=== PATIENT | female | born 1995 | race Caucasian/White ===

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

== ENCOUNTER 2017-04-19 07:31 | Outpatient (CLI) | payer MEDICAID ==
--- NOTE | 2017-04-19 16:00 | Ultrasound Report ---
OB ULTRASOUND: 04/19/2017 CLINICAL INDICATION: anatomy. TECHNIQUE: Real-time scanning was performed with technical account representative static images obtained. LAST MENSTRUAL PERIOD 11/06/2016 CLINICAL AGE 23 weeks 3 days US AGE 22 weeks 3 days EFW HADLOCK 511 grams EFW% HADLOCK 11% HEART RATE 137 bpm EDC 08/13/2017 US EDC 08/20/2017 BPD HADLOCK 22 weeks 0 days; Mean mm 53 HC HADLOCK 22 weeks 1 day; Mean mm 200 AC HADLOCK 22 weeks 3 days; Mean mm 175 FL HADLOCK 22 weeks 6 days; Mean mm 40 PRESENTATION variable. PLACENTAL LOCATION anterior. CERVICAL LENGTH TA 5.1 cm AMNIOTIC FLUID 14.3 cm, subjectively normal; MVP 4.2 cm FINDINGS There is a single viable intrauterine gestation, in variable position. heart rate is 137 BPM. The placenta is anterior, without evidence of previa. Amniotic fluid volume is subjectively normal, with the deepest pocket of 4.2 cm. By size, the fetus measures 22 weeks 3 days (23 weeks 3 days by LMP). The following anatomic structures were visualized and appear normal: The intracranial contents, including the ventricles and posterior fossa; the lips and orbits; the spine; the heart, including 4 chamber view and outflow tracts, and diaphragm; the abdominal contents, including the stomach, the bilateral kidneys, and urinary bladder, as well as a normal 3 vessel cord insertion; 4 limbs. No free fluid or adnexal lesion is appreciated. IMPRESSION: SINGLE VIABLE INTRAUTERINE GESTATION, WITH SIZE IN KEEPING WITH LMP DATING. NORMAL ANATOMIC SURVEY. TD: 04/19/2017 14:20 [facility]
== END 2017-04-19 07:32 | disposition home or self-care (01) ==
LOC: DI 07:31
PROVIDERS: ATTEND Midwife
DX: Z36.9 Encounter for antenatal screening, unspecified (principal)
CPT/HCPCS: 76811